=== PATIENT | female | born 1980 | race Caucasian/White ===

== ENCOUNTER 2016-12-02 13:52 | Emergency (ER) | payer OTHER ==
--- NOTE | ~2016-12-02 | CT4 ---
[facility] A Service of [facility] & [facility] RADIOLOGY TEXT RESULTS PATIENT: FREYA CLEMENTE LOCATION: [facility] : 82 UNIT #: [id number] AGE: [address]: Uri Paez MD SEX: F ORDER DR: [id number] [facility] [address] [place], [place] [address] [id number] E MR#: [id number] Acc #: [id number] NAME: FREYA CLEMENTE : 1980 SEX: F STUDY DATE/TIME: 12/02/2016 13:12 UNIT: [facility] ROOM: STUDY DESCRIPTION: CT Abd and Pelv Wo Cont Attending Physician: Uri Paez M.D. Ordering Physician: Uri Paez M.D. Primary Care Physician: Wen Diana M.D. MEDICAL IMAGING REPORT This report is preliminary unless electronic signature is present EXAM CT abdomen and pelvis without contrast, 12/02/2016 HISTORY Abdominal pain since 04:00 today. History of Crohn disease, gastritis, gastroesophageal reflux disease. Appendectomy. section. Hernia repair. COMPARISON CT abdomen and pelvis without contrast, 08/09/2016. PROCEDURE 3.0 mm noncontrast axial images through the abdomen and pelvis. Enteric contrast was not administered. Sagittal and coronal reformatted images were obtained. This CT exam was performed with one or more of the following radiation dose reduction techniques: automatic exposure control, adjustment of mA and/or kV according to patient size, and iterative reconstruction. FINDINGS Limited evaluation of the bowel due to lack of IV and oral contrast. Appendectomy changes are present. The unopacified bowel appears grossly nonthickened, nondilated, and noninflamed. No free air, free fluid or abscess is identified. No evidence of high-grade bowel obstruction. Lung bases are free of consolidation. Noncontrast appearance of the liver, gallbladder, spleen, pancreas, adrenals and kidneys within normal limits. No urinary tract stone or hydronephrosis is seen. PELVIS FINDINGS: Urinary bladder, uterus and rectum are normal. No pelvic adenopathy or free fluid. [facility] A Service of [facility] RADIOLOGY TEXT RESULTS PATIENT: FREYA CLEMENTE LOCATION: [facility] : 82 UNIT #: [id number] AGE: [address]: Uri Paez MD SEX: F ORDER DR: No acute or suspicious osseous abnormalities. Previously described tiny 4.0 mm pleural-based nodule in the posterior right lower lobe is no longer visualized today. IMPRESSION 1. No acute findings in the abdomen or pelvis. There is no CT explanation for the patient's abdominal pain. 2. Limited evaluation of bowel in this patient with Crohn disease due to lack of enteric contrast. 3. The appendix is normal. Dictated by... Rachel Petit M.D. THIS IS AN ELECTRONICALLY VERIFIED REPORT Rachel Petit M.D. at 12/03/2016 7:57 AM Vickie TD: 12/02/2016 14:30 JOB #: [id number] MEDICAL IMAGING REPORT Page 1 of 1 COPY
[2016-12-02 10:08] LABS: URINE SOURCE CLEAN CATCH
[2016-12-02 10:47] LABS: URBCS1 AUWI 0-2 /[HPF] (0-2); URINE APPEARANCE CLEAR; URINE BACTERIA AUWI NEG (NEGATIVE); URINE BILIRUBIN NEG (NEG); URINE BLOOD NEG (NEG); URINE COLOR YELLOW; URINE GLUCOSE NEG (NEG); URINE KETONE NEG (NEG); URINE LEUKOCYTE ESTERASE NEG (NEG); URINE NITRATE NEG (NEG); URINE PROTEIN NEG (NEG); URINE SPECIFIC GRAVITY 1.004 (1.003-1.035); URINE SQUAMOUS EPITHELIAL CELL OCC /[HPF]; URINE UROBILINOGEN 0.2 MG/DL (NEG); UWBCS1 AUWI 0-2 (0-5)
[2016-12-02 10:50] LABS: CULTURE INDICATED? NO
[2016-12-02 11:38] LABS: BASOPHIL# 0.1 X10e3 (0-0.3); BASOPHIL% 0.3 % (0-2.5); EOSINOPHIL# 0.2 X10e3 (0-0.7); EOSINOPHIL% 0.9 % (0.0-7.0); HEMATOCRIT 49.1 % (35.0-45.0); HEMOGLOBIN 16.8 gm/dL (12.0-16.0); LYMPHOCYTE# 1.4 X10e3 (1.0-3.5); LYMPHOCYTE% 8.2 % (17.0-45.0); MEAN CELL VOLUME 86.6 FL (83-96); MEAN CORPUSCULAR HEMOGLOBIN 29.7 PG (28-34); MEAN CORPUSCULAR HGB CONC 34.3 g/dL (30-36); MEAN PLATELET VOLUME 8.1 FL (6.5-11.5); MONOCYTE# 1.1 X10e3 (0-1.0); MONOCYTE% 6.5 % (3.0-12.0); NEUTROPHIL# 14.7 X10e3 (1.5-7.1); NEUTROPHIL% 84.1 % (40-75); PLATELET COUNT 417 X10e3 (140-420); RED BLOOD COUNT 5.67 X10e (3.90-5.30); RED CELL DISTRIBUTION WIDTH 12.8 % (11.0-15.5); WHITE BLOOD COUNT 17.5 X10e3 (4.0-10.5)
[2016-12-02 11:39] LABS: DIFF IND YES
[2016-12-02 11:57] LABS: ALBUMIN SERUM 4.1 g/dL (3.5-5.0); ALKALINE PHOSPHATASE 83 U/L (32-92); ALT (SGPT) 22 U/L (10-40); AST (SGOT) 17 U/L (10-42); BILIRUBIN,TOTAL 0.6 mg/dL (0.2-2.0); BLOOD UREA NITROGEN 16 mg/dL (9-23); CALCIUM SERUM 9.3 mg/dL (8.4-10.2); CARBON DIOXIDE 27 mmol/L (22-31); CHLORIDE 104 mmol/L (100-111); CREATININE SERUM 0.8 mg/dL (0.6-1.4); GLOM FILT RATE Estimated 95.6 mL/min (>60); GLUCOSE FASTING 113 mg/dL (70-110); LIPASE 28 U/L (22-51); POTASSIUM 3.9 mmol/L (3.5-5.1); PROTEIN TOTAL SERUM 7.8 g/dL (6.0-8.3); SODIUM 142 mmol/L (135-145)
[2016-12-02 12:05] LABS: BILIRUBIN, DIRECT <0.1 mg/dL (0.0-0.2); BILIRUBIN,INDIRECT 0.5 mg/dL (0.0-0.9)
[2016-12-02 12:07] LABS: PLATELET ESTIMATE INCREASED (NORMAL)
[2016-12-02 12:08] LABS: ANISOCYTOSIS SL
[~2016-12-02 13:52] MED LIST: ACETAMINOPHEN; ANTIVERT PO; BENTYL10 MG PO; BIRTH CONTROL PILL; CIPRO PO; FLEXERIL PO; FLONASE16 GM; IBUPROFEN PO; LORTAB 7.51 TAB PO; OMEPRAZOLE40 M1 PO; ONDANSETRON ODT4 MG PO; ORUDIS75 M1 PO; PENTASA250 MG PO; PRENATAL VITAMI1 TA3; VICODIN 5/1 TAB 5/50 PO; ZOFRAN ODT4 MG PO; ZYRTEC PO
== END 2016-12-02 14:43 | disposition home or self-care (01) ==
LOC: CED 13:52
DX: R10.84 Generalized abdominal pain (principal); R11.2 Nausea with vomiting, unspecified; R19.7 Diarrhea, unspecified; Z88.0 Allergy status to penicillin; Z88.8 Allergy status to other drugs, medicaments and biological substances
CPT/HCPCS: 36415; 74176; 80048; 80076; 81003; 83690; 84703; 85025; 96361; 96372; 96374; 96375; 99284; J0500; J2270; J2405

== ENCOUNTER 2017-01-08 15:40 | Emergency (ER) | payer OTHER | END 2017-01-08 16:13 | disposition left against medical advice (07) | LOC: CED 15:40 | DX: Z53.21 Procedure and treatment not carried out due to patient leaving prior to being seen by health care provider (principal) ==